=== PATIENT | male | born 1985 | race Caucasian/White ===

== ENCOUNTER → 2023-05-06 13:01 | Outpatient (BNVA) | payer OTHER, SELFPAY | PROVIDERS: Family Provider Internal Medicine; Visit Provider Podiatrist Foot & Ankle Surgery | DX: M72.2 Plantar fascial fibromatosis; E10.9 Type 1 diabetes mellitus without complications; M24.571 Contracture, right ankle; Z79.84 Long term (current) use of oral hypoglycemic drugs | CPT/HCPCS: 73630 ==